=== PATIENT | female | born 1960 | race Caucasian/White ===

== ENCOUNTER 2017-02-09 14:32 | Inpatient (IN) | payer MEDICARE, OTHER ==
[~2017-02-09] VITALS: Ht 167.6 cm; Wt 55.8 kg
[~2017-02-09 14:32] MED LIST: AMLO10TA2 PO; AMLO10TA4 PO; CA C1TAB28 PO; CALC667T PO; CARV12.5 PO; CINA30TA2 PO; CINA60TA PO; FURO-68 PO; FURO80TA72 PO; METO10TA5 PO; METO50TA2 PO; SEVE800T9 PO
[2017-02-09] MEDS ORDERED: IPRATRPIUM/ALBUTEROL 0.5/2.5MG 3 ML NEBU. NEB ONE (14:45)
[2017-02-09] MEDS ORDERED: predniSONE 20 MG TABLET PO ONE (14:45)
--- NOTE | 2017-02-09 15:13 | RAD ---
Indication shortness of breath. PA and lateral views of the chest were obtained and are compared to a study 01/02/2014. There is generalized cardiomegaly. There are extensive bilateral infiltrates similar to the previous exam. While some of this is may be chronic recurrent pulmonary edema should be considered. A component of infection or hemorrhage is not excluded. There are probable small pleural effusions. There is no pneumothorax. IMPRESSION: Stable cardiomegaly. Widespread bilateral pulmonary infiltrates. See above discussion
--- NOTE | 2017-02-09 15:16 | EKG ---
[facility] [address] [place] [address] Test Date: 2017-02-09 Test Time: 14:40:20 Pat Name: MARVIN AUGUSTIN Department: Room: Gender: F Cancer Genetic Counselor: : 1960 Requested By: Ja RAY Order Number: [id number] Reading MD: Measurements Intervals [place] Rate: 87 P: 2 FL: 160 QRS: 68 QRSD: 84 T: 59 QT: 394 QTc: 480 Interpretive Statements SINUS RHYTHM LEFT ATRIAL ABNORMALITY QRS(T) CONTOUR ABNORMALITY CANNOT RULE OUT ANTEROSEPTAL MYOCARDIAL DAMAGE PROLONGED QT RI6.01 Unconfirmed report No previous ECG available for comparison
--- NOTE | 2017-02-09 15:30 | PHYS DOC ---
Past Medical History Past Medical History: Anxiety, COPD, Hypertension, Renal Failure Past Surgical History: Other Additional Past Surgical Histo: LEFT UPPER ARM SHUNT Alcohol Use: None Drug Use: None Adult General Chief Complaint Chief Complaint: SHORTNESS OF BREATH HPI HPI Patient is a 56 year old female with oxygen dependent COPD who presents with dyspnea and increased cough since yesterday. She finished prednisone taper and antibiotics 1 week ago. She has increased amount of sputum, but no color changes. She denies fever or chills, hemoptysis, leg pain, orthopnea, chest pain, palpitations, diaphoresis, abdominal pain, nausea or vomiting, diarrhea, headache, rash. Adheres to [facility]. She went today, but was sent here prior to treatment. Review of Systems Review of Systems Constitutional: Denies fever or chills [] Eyes: Denies change in visual acuity, redness, or eye pain [] HENT: Denies nasal congestion or sore throat [] Respiratory: Has cough and shortness of breath [] Cardiovascular: No additional information not addressed in HPI [] GI: Denies abdominal pain, nausea, vomiting, bloody stools or diarrhea [] : Denies dysuria or hematuria [] Musculoskeletal: Denies back pain or joint pain [] Integument: Denies rash or skin lesions [] Neurologic: Denies headache, focal weakness or sensory changes [] Endocrine: Denies polyuria or polydipsia [] Current Medications Current Medications Current Medications Medications (Trade) Dose Ordered Sig/Leonard Start Time Stop Time Status Last Admin Dose Admin Albuterol/ Ipratropium (Duoneb) 3 ml 1X ONCE 02/09/17 14:45 02/09/17 14:46 DC 02/09/17 14:45 3 ML Prednisone (Prednisone) 60 mg 1X ONCE 02/09/17 14:45 02/09/17 14:46 DC 02/09/17 14:45 60 MG Allergies Allergies Allergies Coded Allergies Type Severity Reaction Last Updated Verified amoxicillin Allergy Intermediate 01/03/14 Yes clavulanic acid Allergy Intermediate 01/03/14 Yes Physical Exam Physical Exam Constitutional: Well developed, well nourished, no acute distress, non-toxic appearance. [] HENT: Normocephalic, atraumatic, bilateral external ears normal, oropharynx moist, no oral exudates, nose normal. [] Eyes: PERRLA, EOMI. [] Neck: Normal range of motion, supple. [] Cardiovascular:Heart rate regular rhythm [] Lungs & Thorax: Mild bilateral wheezing, normal respiratory effort, no crackles [] Abdomen: Bowel sounds normal, soft, no tenderness. [] Skin: Warm, dry, no erythema, no rash. [] Back: Normal ROM. [] Extremities: No tenderness, ROM intact, trace bilateral pretibial edema. [] Neurologic: Alert and oriented X 3, normal motor function, normal sensory function, no focal deficits noted. [] Psychologic: Affect normal, judgement normal, mood normal. [] Current Patient Data Vital Signs Vital Signs Date Time Temp Pulse Resp B/P (MAP) Pulse Ox O2 Delivery O2 Flow Rate FiO2 02/09/17 15:36 91 22 184/96 (125) 91 Nasal Cannula 3.0 02/09/17 14:35 98.5 98.5 Lab Values Laboratory Tests Test 02/09/17 14:35 White Blood Count 9.4 x10^3/uL (4.0-11.0) Red Blood Count 2.77 x10^6/uL (3.50-5.40) L Hemoglobin 9.1 g/dL (12.0-15.5) L Hematocrit 28.1 % (36.0-47.0) L Mean Corpuscular Volume 102 fL (79-100) H Mean Corpuscular Hemoglobin 33 pg (25-35) Mean Corpuscular Hemoglobin Concent 33 g/dL (31-37) Red Cell Distribution Width 18.8 % (11.5-14.5) H Platelet Count 251 x10^3/uL (140-400) Neutrophils (%) (Auto) 81 % (31-73) H Lymphocytes (%) (Auto) 11 % (24-48) L Monocytes (%) (Auto) 6 % (0-9) Eosinophils (%) (Auto) 0 % (0-3) Basophils (%) (Auto) 1 % (0-3) Neutrophils # (Auto) 7.6 x10^3uL (1.8-7.7) Lymphocytes # (Auto) 1.1 x10^3/uL (1.0-4.8) Monocytes # (Auto) 0.6 x10^3/uL (0.0-1.1) Eosinophils # (Auto) 0.0 x10^3/uL (0.0-0.7) Basophils # (Auto) 0.1 x10^3/uL (0.0-0.2) Sodium Level 138 mmol/L (136-145) Potassium Level 6.7 mmol/L (3.5-5.1) *H Chloride Level 95 mmol/L (98-107) L Carbon Dioxide Level 29 mmol/L (21-32) Anion Gap 14 (6-14) Blood Urea Nitrogen 84 mg/dL (7-20) H Creatinine 11.8 mg/dL (0.6-1.0) H Estimated GFR (Cockcroft-Gault) 3.3 Glucose Level 79 mg/dL (70-99) Calcium Level 9.9 mg/dL (8.5-10.1) Laboratory Tests 02/09/17 14:35 Laboratory Tests 02/09/17 14:35 EKG EKG EKG as interpreted by me as normal sinus rhythm, rate 87, no ST-T changes, normal intervals, no ectopy Radiology/Procedures Radiology/Procedures Chest x-ray as interpreted by me with bilateral infiltrates concerning for pulmonary fibrosis versus pulmonary edema versus infectious etiology Course & Med Decision Making Course & Med Decision Making Pertinent Labs and Imaging studies reviewed. (See chart for details) She is feeling much better after neb here, but desaturates to 70s while walking even with 2 L nasal cannula. She does have an oxygen concentrator at home, but states she has not had a formal walking desaturation study by her pizzamaker to know how much oxygen to wear at home. Her symptoms are most concerning for COPD/CHF exacerbations as opposed to pneumonia, so will start on Levaquin for now. Pulmonology, cardiology and nephrology consults placed. Discussed case with Dr. Rdz, who will admit. Discussed case with Dr. Isaac, who will arrange dialysis. Dragon Disclaimer Dragon Disclaimer This electronic medical record was generated, in whole or in part, using a voice recognition dictation system. Departure Departure Impression: Primary Impression: COPD exacerbation Additional Impressions: End stage renal disease on dialysis Hyperkalemia Disposition: ADMITTED INPATIENT Condition: STABLE Referrals: NO PCP (PCP) Problem Qualifiers Ja RAY MD Feb 09, 2017 15:30
[2017-02-09 15:44] LABS: BASO # 0.1 x10^3/uL (0.0-0.2); BASO % 1 % (0-3); EOS % 0 % (0-3); HEMATOCRIT 28.1 % (36.0-47.0); HEMOGLOBIN 9.1 g/dL (12.0-15.5); LYMPH # 1.1 x10^3/uL (1.0-4.8); LYMPH % 11 % (24-48); MEAN CORPUSCULAR HEMOGLOBIN 33 pg (25-35); MEAN CORPUSCULAR HGB CONC 33 g/dL (31-37); MEAN CORPUSCULAR VOLUME 102 fL (79-100); MONO % 6 % (0-9); NEUT % 81 % (31-73); PLATELET COUNT 251 x10^3/uL (140-400); RED BLOOD COUNT 2.77 x10^6/uL (3.50-5.40); RED CELL DISTRIBUTION WIDTH 18.8 % (11.5-14.5); WHITE BLOOD COUNT 9.4 x10^3/uL (4.0-11.0)
[2017-02-09] MEDS ORDERED: levOFLOXacin PER PHARMACY. MC PRN (15:45)
[2017-02-09] MEDS ORDERED: ONDANSETRON PF 4 MG/2 ML VIAL. IV PRN ×2 (16:00→17:30)
[2017-02-09] MEDS ORDERED: ACETAMINOPHEN 325 MG TABLET. PO PRN ×2 (16:00→17:30)
[2017-02-09 16:16] LABS: CALCIUM 9.9 mg/dL (8.5-10.1); CREATININE 11.8 mg/dL (0.6-1.0); GFR 3.3
[2017-02-09] MEDS: IPRATRPIUM/ALBUTEROL 0.5/2.5MG 3 ML NEBU. NEB SCH ×2 (16:16→19:55)
[2017-02-09 16:22] LABS: POTASSIUM 6.7 mmol/L (3.5-5.1)
--- NOTE | 2017-02-09 17:27 | PDOC1 ---
History and Physical Identification/Chief Complaint Chief Complaint sob, cough Problems: History of Present Illness History of Present Illness A 56 Female with hx of ESRD went to HD today, her vital showed Saturations to low 70s, and pt was sent to ER, Pt was requiring 4l oxygen at rest, she usually uses oxygen at night time 2L, Pt c/o cough, with white sputum production, seen by her PCP, completed abx course with steroids. no chest pain or fever or chills. didn't skip her HD. Not a smoker. no sick contacts. compliant with her diet. Past Medical History Cardiovascular: HTN Pulmonary: COPD CENTRAL NERVOUS SYSTEM: Other GI: No pertinent hx Heme/Onc: Cancer Hepatobiliary: No pertinent hx Psych: No pertinent hx Rheumatologic: No pertinent hx Infectious disease: No pertinent hx Renal/: Chronic renal failure Endocrine: No pertinent hx Past Surgical History Past Surgical History: Other Family History Family History: Coronary Artery Disease Social History Smoke: No ALCOHOL: none Drugs: None Current Problem List Problem List Problems Medical Problems: (1) COPD exacerbation Status: Acute (2) End stage renal disease on dialysis Status: Acute (3) Hyperkalemia Status: Acute Current Medications Current Medications Current Medications Medications (Trade) Dose Ordered Sig/Leonard Start Time Stop Time Status Last Admin Dose Admin Acetaminophen (Tylenol) 650 mg PRN Q4HRS PRN 02/09/17 16:00 02/10/17 15:59 Albuterol/ Ipratropium (Duoneb) 3 ml RTQID 02/09/17 16:00 02/10/17 15:59 02/09/17 16:16 3 ML Levofloxacin/ Dextrose 100 ml @ 100 mls/hr Q48H 02/11/17 16:00 Levofloxacin/ Dextrose (Levaquin Per Pharmacy) 1 each PRN DAILY PRN 02/09/17 15:45 Ondansetron HCl (Zofran) 4 mg PRN Q8HRS PRN 02/09/17 16:00 02/10/17 15:59 Prednisone (Prednisone) 60 mg 1X ONCE 02/09/17 14:45 02/09/17 14:46 DC 02/09/17 14:45 60 MG Allergies Allergies Allergies Coded Allergies Type Severity Reaction Last Updated Verified amoxicillin Allergy Intermediate 01/03/14 Yes clavulanic acid Allergy Intermediate 01/03/14 Yes ROS Review of System CONSTITUTIONAL: No fever or chills EYES: No recent changes SKIN: No rash or itching CARDIOVASCULAR: No chest pain, syncope, palpitations, or edema RESPIRATORY: SOB or cough GASTROINTESTINAL: No nausea, vomiting or abdominal pain NEUROLOGICAL: No headaches or weakness ENDOCRINE: No cold or heat intolerance GENITOURINARY: No urgency or frequency of urination MUSCULOSKELETAL: No back pain or joint pain LYMPHATICS: No enlarged lymph nodes PSYCHIATRIC: No anxiety or depression Physical Exam Physical Exam GEN.: No apparent distress. Alert and oriented. HEENT: Head is normocephalic, atraumatic NECK: Supple. no JVD LUNGS: anterior clear, posterior: crackles, HEART: RRR, S1, S2 present. Peripheral pulses intact, systolic murmur present. ABDOMEN: Soft, nontender. Positive bowel sounds. EXTREMITIES: Without any cyanosis. +2 edema NEUROLOGIC: Normal speech, normal tone PSYCHIATRIC: Normal affect, normal mood. SKIN: No ulcerations Vitals Vitals Vital Signs Date Time Temp Pulse Resp B/P (MAP) Pulse Ox O2 Delivery O2 Flow Rate FiO2 02/09/17 16:16 Nasal Cannula 4.0 02/09/17 16:00 90 18 169/95 (119) 92 02/09/17 14:35 98.5 98.5 Labs Labs Laboratory Tests Test 02/09/17 14:35 White Blood Count 9.4 x10^3/uL (4.0-11.0) Red Blood Count 2.77 x10^6/uL (3.50-5.40) Hemoglobin 9.1 g/dL (12.0-15.5) Hematocrit 28.1 % (36.0-47.0) Mean Corpuscular Volume 102 fL (79-100) Mean Corpuscular Hemoglobin 33 pg (25-35) Mean Corpuscular Hemoglobin Concent 33 g/dL (31-37) Red Cell Distribution Width 18.8 % (11.5-14.5) Platelet Count 251 x10^3/uL (140-400) Neutrophils (%) (Auto) 81 % (31-73) Lymphocytes (%) (Auto) 11 % (24-48) Monocytes (%) (Auto) 6 % (0-9) Eosinophils (%) (Auto) 0 % (0-3) Basophils (%) (Auto) 1 % (0-3) Neutrophils # (Auto) 7.6 x10^3uL (1.8-7.7) Lymphocytes # (Auto) 1.1 x10^3/uL (1.0-4.8) Monocytes # (Auto) 0.6 x10^3/uL (0.0-1.1) Eosinophils # (Auto) 0.0 x10^3/uL (0.0-0.7) Basophils # (Auto) 0.1 x10^3/uL (0.0-0.2) Sodium Level 138 mmol/L (136-145) Potassium Level 6.7 mmol/L (3.5-5.1) Chloride Level 95 mmol/L (98-107) Carbon Dioxide Level 29 mmol/L (21-32) Anion Gap 14 (6-14) Blood Urea Nitrogen 84 mg/dL (7-20) Creatinine 11.8 mg/dL (0.6-1.0) Estimated GFR (Cockcroft-Gault) 3.3 Glucose Level 79 mg/dL (70-99) Calcium Level 9.9 mg/dL (8.5-10.1) MV-Bba-O-Type Natriuretic Peptide > 38193 pg/mL (0-124) Laboratory Tests Test 02/09/17 14:35 White Blood Count 9.4 x10^3/uL (4.0-11.0) Red Blood Count 2.77 x10^6/uL (3.50-5.40) Hemoglobin 9.1 g/dL (12.0-15.5) Hematocrit 28.1 % (36.0-47.0) Mean Corpuscular Volume 102 fL (79-100) Mean Corpuscular Hemoglobin 33 pg (25-35) Mean Corpuscular Hemoglobin Concent 33 g/dL (31-37) Red Cell Distribution Width 18.8 % (11.5-14.5) Platelet Count 251 x10^3/uL (140-400) Neutrophils (%) (Auto) 81 % (31-73) Lymphocytes (%) (Auto) 11 % (24-48) Monocytes (%) (Auto) 6 % (0-9) Eosinophils (%) (Auto) 0 % (0-3) Basophils (%) (Auto) 1 % (0-3) Neutrophils # (Auto) 7.6 x10^3uL (1.8-7.7) Lymphocytes # (Auto) 1.1 x10^3/uL (1.0-4.8) Monocytes # (Auto) 0.6 x10^3/uL (0.0-1.1) Eosinophils # (Auto) 0.0 x10^3/uL (0.0-0.7) Basophils # (Auto) 0.1 x10^3/uL (0.0-0.2) Sodium Level 138 mmol/L (136-145) Potassium Level 6.7 mmol/L (3.5-5.1) Chloride Level 95 mmol/L (98-107) Carbon Dioxide Level 29 mmol/L (21-32) Anion Gap 14 (6-14) Blood Urea Nitrogen 84 mg/dL (7-20) Creatinine 11.8 mg/dL (0.6-1.0) Estimated GFR (Cockcroft-Gault) 3.3 Glucose Level 79 mg/dL (70-99) Calcium Level 9.9 mg/dL (8.5-10.1) WZ-Akb-X-Type Natriuretic Peptide > 55383 pg/mL (0-124) VTE Prophylaxis Ordered VTE Prophylaxis Devices: No VTE Pharmacological Prophylaxi: Contraindicated Assessment/Plan Assessment/Plan Acute on chronic hypoxic respiratory failure multifactorial Hyperkalemia ESRD on HD HTN ? COPD Elevated BNP Plan PRN DuoNeb supplemental oxygen at 2-4L Levaquin, pt completed abx at home with steroids, (unknown name of the abx) PO Kayexalate now. HD today, nephrology consult PRN hydralazine for HTN if sbp > 160. Echocardiogram CT chest for persistent sob, pulmonology consult Labs and images reviewed. CXR congestion vs chronic changes. old records reviewed. SULEMA VIVAS MD Feb 09, 2017 17:27
[2017-02-09] MEDS ORDERED: HYDROcodone/APAP 5/325MG 1 TAB TABLET PO PRN ×2 (17:30→18:00)
[2017-02-09] MEDS ORDERED: ALBUTEROL SULFATE 2.5 MG/3 ML NEBU. NEB PRN (17:30)
[2017-02-09] MEDS ORDERED: SODIUM POLYSTYRENE SULFONATE 15 GM/60 ML ORAL.SUSP. PO ONE (17:30)
[2017-02-09] MEDS ORDERED: hydrALAZINE 20 MG/ML VIAL. IVP PRN (17:30)
[2017-02-09 17:33] VITALS: BP 142/94
[2017-02-09] MEDS ORDERED: SEVE800T9 PO (17:34)
[2017-02-09] MEDS ORDERED: FOLI0.8T3 PO (17:34)
[2017-02-09] MEDS ORDERED: HYDR-2868 PO (17:34)
[2017-02-09] MEDS ORDERED: HYDR-971 PO (17:34)
[2017-02-09] MEDS ORDERED: BECL8.7A7 IH (17:34)
[2017-02-09] MEDS ORDERED: CINA30TA2 PO (17:34)
[2017-02-09] MEDS ORDERED: CALC667T PO (17:34)
[2017-02-09] MEDS ORDERED: PANT40TA5 PO (17:34)
[2017-02-09] MEDS ORDERED: LEXAPRO20 MG PO (17:34)
[2017-02-09] MEDS ORDERED: SODI650T PO (17:34)
[2017-02-09] MEDS ORDERED: CARV6.25 PO (17:34)
[2017-02-09] MEDS ORDERED: ALBUMIN HUMAN 25% 200 ML IV PRN (18:00)
[2017-02-09] MEDS ORDERED: IV NORMAL SALINE 1000ML BAG 1,000 ML IV PRN (18:00)
[2017-02-09] MEDS ORDERED: DIALYSIS PATIENT. MC PRN (18:00)
[2017-02-09] MEDS ORDERED: diphenhydrAMINE 50 MG/ML VIAL IV PRN ×2 (18:00)
[2017-02-09] MEDS: SEVELAMER CARBONATE 800 MG TABLET. PO SCH (18:03)
[2017-02-09] MEDS: CALCIUM ACETATE 667 MG CAPSULE PO SCH (18:03)
[2017-02-09] MEDS: CARVEDILOL 6.25 MG TABLET. PO SCH (18:03)
[2017-02-09] MEDS: BUDESONIDE 0.5 MG/2 ML NEBU. NEB SCH (19:55)
[2017-02-09] MEDS: hydrALAZINE 25 MG TABLET PO SCH (22:42)
[2017-02-09] MEDS: SODIUM BICARBONATE 650 MG TABLET. PO SCH (22:42)
[2017-02-09 23:00] VITALS: BP 145/83
[2017-02-10 03:00] VITALS: BP 137/86
--- NOTE | 2017-02-10 03:07 | ACF ---
Admission Forms Criteria COPD Clinical Indications for Admission to Inpatient Care (Place 'X' for any and all applicable criteria): Admission is indicated for ANY ONE of the following (1)(2)(3): [X]I. Acute exacerbation by high-risk comorbidity (e.g., pneumonia, dysrhythmia, heart failure, pleural effusion, pneumothorax) or severe underlying COPD (e.g., steroid dependent) [ ]II. Inpatient admission required rather than observation care (see Chronic Obstructive Pulmonary Disease: Observation Care) because of ANY ONE of the following: [ ]a) New or pre-existing signs or symptoms of COPD (eg, dyspnea or Tachypnea at rest or with minimal activity) that persist despite outpatient and observation care treatment [ ]b) New-onset hypoxemia (room air SaO2 less than 90%, PO2 less than 60 mm Hg (8.0 kPa)) that persists despite outpatient and observation care treatment [ ]c) Worsening of pre-existing hypoxemia (eg, new or increased requirement for supplemental oxygen to maintain oxygenation at baseline level) that persists despite outpatient and observation care treatment, with oxygen treatment needs performable only in acute inpatient setting [ ]d) Hypercarbia (PCO2 greater than 40 mm Hg (5.3 kPa))-induced respiratory acidosis (pH less than 7.35) that persists despite outpatient and observation care treatment [ ]e) Supplemental oxygen or respiratory treatments for over 24 hours that are performable only in acute inpatient setting [ ]f) Chest tube placement with active evacuation (e.g., suction, drainage) (5) [ ]g) Other condition, treatment or monitoring requiring inpatient admission [ ]III. Planned invasive surgical or diagnostic procedures requiring acute- care hospitalization [ ]IV. Acute respiratory failure (e.g., uncompensated hypercarbia, severe hypoxemia) [ ]V. Severe comorbid condition (e.g., severe steroid myopathy, acute vertebral fracture) that has acutely worsened pulmonary function [ ]. Confusion state, lethargy, obtundation, stupor or coma Extended stay beyond goal length of stay may be needed for (31)(32): [ ]a ) Respiratory Failure. [ ]b) Severe or persisting hypoxemia or hypercarbia [ ]c) Severe or persistent dyspnea [ ]d) Comorbidities (e.g. chronic heart failure, atrial fibrillation with rapid response, pneumonia) [ ]e) Malnutrition The original [facility] content created by [facility] has been revised. The portions of the content which have been revised are identified through the use of italic text or in bold, and [facility] has neither reviewed nor approved the modified material. All other unmodified content is copyright [facility]. Please see references footnoted in the original [facility] edition 2016 Admission Criteria Met?: Yes SHYANN ANN Feb 10, 2017 03:07
[2017-02-10 03:59] LABS: BASO % 0 % (0-3); EOS % 0 % (0-3); HEMOGLOBIN 8.4 g/dL (12.0-15.5); LYMPH # 0.4 x10^3/uL (1.0-4.8); LYMPH % 6 % (24-48); MEAN CORPUSCULAR HEMOGLOBIN 34 pg (25-35); MEAN CORPUSCULAR HGB CONC 35 g/dL (31-37); MEAN CORPUSCULAR VOLUME 98 fL (79-100); MONO % 7 % (0-9); NEUT % 87 % (31-73); PLATELET COUNT 227 x10^3/uL (140-400); RED BLOOD COUNT 2.46 x10^6/uL (3.50-5.40); RED CELL DISTRIBUTION WIDTH 17.8 % (11.5-14.5); WHITE BLOOD COUNT 6.9 x10^3/uL (4.0-11.0)
[2017-02-10 04:11] LABS: CREATININE 5.4 mg/dL (0.6-1.0); GFR 8.2; POTASSIUM 4.3 mmol/L (3.5-5.1)
[2017-02-10 07:00] VITALS: BP 154/86
[2017-02-10] MEDS: IPRATRPIUM/ALBUTEROL 0.5/2.5MG 3 ML NEBU. NEB SCH ×3 (07:22→15:14)
[2017-02-10] MEDS: BUDESONIDE 0.5 MG/2 ML NEBU. NEB SCH (07:22)
[2017-02-10] MEDS ORDERED: PANTOPRAZOLE 40 MG TABLET.DR. PO SCH (07:30)
[2017-02-10] MEDS: CALCIUM ACETATE 667 MG CAPSULE PO SCH ×2 (08:00→11:48)
[2017-02-10] MEDS: SEVELAMER CARBONATE 800 MG TABLET. PO SCH ×2 (08:00→11:48)
[2017-02-10] MEDS: CARVEDILOL 6.25 MG TABLET. PO SCH (08:18)
[2017-02-10] MEDS: hydrALAZINE 25 MG TABLET PO SCH (08:18)
[2017-02-10] MEDS ORDERED: ESCITALOPRAM 10 MG TABLET. PO SCH (09:00)
[2017-02-10] MEDS ORDERED: FOLIC/VIT B COMP W-C (RENAL) TABLET. PO SCH (09:00)
[2017-02-10] MEDS: SODIUM BICARBONATE 650 MG TABLET. PO SCH ×2 (09:00→11:48)
[2017-02-10] MEDS ORDERED: CINACALCET HCL 30 MG TABLET PO SCH (09:00)
[2017-02-10] MEDS ORDERED: amLODIPine BESYLATE 10 MG TABLET PO SCH (09:00)
--- NOTE | 2017-02-10 10:41 | CARD ---
APPROVED REPORT EXAM: Two-dimensional and M-mode echocardiogram with Doppler and color Doppler. Other Information Quality : GoodHR: 87bpm Rhythm : NSR INDICATION Congestive Heart Failure Short of air 2D DIMENSIONS RVDd3.2 (2.9-3.5cm)Left Atrium(2D)4.6 (1.6-4.0cm) IVSd1.1 (0.7-1.1cm)Aortic Root(2D)2.7 (2.0-3.7cm) LVDd5.7 (3.9-5.9cm)LVOT Diameter2.0 (1.8-2.4cm) PWd1.1 (0.7-1.1cm)LVDs3.5 (2.5-4.0cm) FS (%) 38.8 %SV109.6 ml LVEF(%)68.5 (>50%) Aortic Valve AoV Peak [place].190.2cm/sAoV VTI33.3cm AO Peak GR.14.5mmHgLVOT Peak [place].133.8cm/s LVOT VTI 24.72cmAO Mean GR.8mmHg STEPHEN (VMAX)2.96my6UGY (VTI)2.30cm2 Mitral Valve MV E Dpyckssp550.9cm/sMV E Peak Gr.193mmHg MV DECEL [id number] A Dwpetpip288.0cm/s MV E Mean Gr.7mmHgMV NHQ65ii E/A Ratio1.1MV A Dfqekdts67ht MVA (PHT)3.77cm2 TDI E/Lateral E'13.7E/Medial E'15.6 Pulmonary Valve PV Peak Ezbbwjyk453.7cm/sPV Peak Grad.13mmHg RVOT VTI19.2cm Tricuspid Valve TR P. Ffubysby671ds/sRAP [id number] TR Peak Gr.51keHySBFB97jnCf LEFT VENTRICLE The left ventricle is normal size. There is mild concentric left ventricular hypertrophy. The left ve ntricular systolic function is normal. The Ejection Fraction is 55-60%. There is normal LV segmental wall motion. The left ventricular diastolic function and filling is normal for age. There is no ventr icular septal defect visualized. RIGHT VENTRICLE The right ventricle is normal size. The right ventricular systolic function is normal. ATRIA The left atrium size is normal. The right atrium size is normal. The interatrial septum is intact wit h no evidence for an atrial septal defect or patent foramen ovale as noted on 2-D or Doppler imaging. AORTIC VALVE The aortic valve is mildly thickened. Doppler and Color Flow revealed mild aortic regurgitation. Ther e is no significant aortic valvular stenosis. MITRAL VALVE The mitral valve leaflets are mildly thickened. There is no evidence of mitral valve prolapse. There is no mitral valve stenosis. Doppler and Color Flow revealed moderate mitral regurgitation. TRICUSPID VALVE The tricuspid valve is normal in structure and function. Doppler and Color Flow revealed moderate tri cuspid regurgitation. The pulmonary artery systolic pressure is estimated at 40 mmHg. There is modera te pulmonary hypertension. There is no tricuspid valve stenosis. PULMONIC VALVE The pulmonic valve is not well visualized. Doppler and Color Flow revealed mild pulmonic valvular reg urgitation. There is no pulmonic valvular stenosis. GREAT VESSELS The aortic root is normal in size. The ascending aorta is normal in size. The pulmonary artery is nor mal. The IVC is normal in size and collapses >50% with inspiration. PERICARDIAL EFFUSION There is moderate pleural effusion. There is no evidence of significant pericardial effusion. Critical Notification Critical Value: No <Conclusion> The left ventricular systolic function is normal. The Ejection Fraction is 55-60%. There is normal LV segmental wall motion. Mild aortic regurgitation. Moderate mitral regurgitation. Moderate tricuspid regurgitation. The pulmonary artery systolic pressure is estimated at 40 mmHg. There is moderate pulmonary hypertension. There is no evidence of significant pericardial effusion.
--- NOTE | 2017-02-10 10:48 | PDOC2 ---
CONSULT Date of Consult Date of Consult DATE: 02/10/17 TIME: 10:47 Reason for Consult Reason for Consult: ESRD and ^ K Referring Physician Referring Physician: Dr Rdz Identification/Chief Complaint Chief Complaint SOB/ COPD Exac Problems: Source Source: Chart review, Patient History of Present Illness Reason for Visit: As dictated Past Medical History Cardiovascular: HTN Pulmonary: COPD CENTRAL NERVOUS SYSTEM: Other GI: No pertinent hx Heme/Onc: Cancer Hepatobiliary: No pertinent hx Psych: No pertinent hx Musculoskeletal: Osteoarthritis Rheumatologic: No pertinent hx Infectious disease: No pertinent hx Renal/: Chronic renal failure Endocrine: No pertinent hx Past Surgical History Past Surgical History: Other Family History Family History: Coronary Artery Disease Social History No ALCOHOL: none Drugs: None Lives: with Family Domestic Violence: Neg Current Problem List Problem List Problems Medical Problems: (1) COPD exacerbation Status: Acute (2) End stage renal disease on dialysis Status: Acute (3) Hyperkalemia Status: Acute Current Medications Current Medications Current Medications Albuterol/ Ipratropium (Duoneb) 3 ml 1X ONCE NEB Last administered on 14:45; Start 02/09/17 at 14:45; Stop 02/09/17 at 14:46; Status DC Prednisone (Prednisone) 60 mg 1X ONCE PO Last administered on 02/09/17 14:45 ; Start 02/09/17 at 14:45; Stop 02/09/17 at 14:46; Status DC Levofloxacin/ Dextrose (Levaquin Per Pharmacy) 1 each PRN DAILY PRN MC SEE COMMENTS; Start 02/09/17 at 15:45 Levofloxacin/ Dextrose 150 ml @ 100 mls/hr 1X ONCE IV Last administered on t 15:45; Start 02/09/17 at 15:45; Stop 02/09/17 at 17:14; Status DC Ondansetron HCl (Zofran) 4 mg PRN Q8HRS PRN IV NAUSEA/VOMITING; Start 02/09/17 at 16:00; Stop 02/09/17 at 17:52; Status DC Acetaminophen (Tylenol) 650 mg PRN Q4HRS PRN PO FEVER; Start 02/09/17 at 16:00 ; Stop 02/09/17 at 17:52; Status DC Albuterol/ Ipratropium (Duoneb) 3 ml RTQID NEB Last administered on 02/10/17 07:22; Start 02/09/17 at 16:00; Stop 02/10/17 at 15:59 Levofloxacin/ Dextrose 100 ml @ 100 mls/hr Q48H IV ; Start 02/11/17 at 16:00 Sodium Polystyrene Sulfonate (Kayexalate) 30 gm 1X ONCE PO Last administered on 02/09/17 17:58; Start 02/09/17 at 17:30; Stop 02/09/17 at 17:44; Status DC Guaifenesin (Robitussin) 200 mg PRN Q4HRS PRN PO COUGH; Start 02/09/17 at 17:30 Acetaminophen (Tylenol) 325 mg PRN Q6HRS PRN PO MILD PAIN / TEMP; Start at 17:30 Acetaminophen/ Hydrocodone Bitart (Lortab 5/325) 1 tab PRN Q6HRS PRN PO MODERATE TO SEVERE PAIN; Start 02/09/17 at 17:30 Hydralazine HCl (Apresoline) 10 mg PRN Q4HRS PRN IVP ELEVATED BP, SEE COMMENTS ; Start 02/09/17 at 17:30 Ondansetron HCl (Zofran) 4 mg PRN Q8HRS PRN IV NAUSEA/VOMITING; Start 02/09/17 at 17:30 Albuterol Sulfate (Ventolin Neb Soln) 2.5 mg PRN Q4HRS PRN NEB SHORTNESS OF BREATH; Start 02/09/17 at 17:30 Amlodipine Besylate (Norvasc) 10 mg DAILY PO Last administered on 02/10/17 08: 17; Start 02/10/17 at 09:00 Carvedilol (Coreg) 6.25 mg BIDWMEALS PO Last administered on 02/10/17 08:18; Start 02/09/17 at 18:00 Cinacalcet (Sensipar) 90 mg DAILY PO Last administered on 02/10/17 08:17; Start 02/10/17 at 09:00 Vitamin B Complex/ Vitamin C (Kasandra-Marissa) 1 tab DAILY PO Last administered on 08:17; Start 02/10/17 at 09:00 Hydralazine HCl (Apresoline) 25 mg TID PO Last administered on 02/10/17 08:18 ; Start 02/09/17 at 21:00 Acetaminophen/ Hydrocodone Bitart (Lortab 5/325) 1 tab PRN Q4HRS PRN PO PAIN Last administered on 02/10/17 02:18; Start 02/09/17 at 18:00 Pantoprazole Sodium (Protonix) 40 mg DAILYAC PO Last administered on 02/10/17 08:18; Start 02/10/17 at 07:30 Sevelamer Carbonate (Renvela) 800 mg TIDWMEALS PO Last administered on 18:03; Start 02/09/17 at 18:00 Sodium Bicarbonate (Sodium Bicarbonate) 1,300 mg BID PO Last administered on 22:42; Start 02/09/17 at 21:00 Budesonide (Pulmicort) 0.5 mg RTBID NEB Last administered on 02/10/17 07:22; Start 02/09/17 at 20:00 Calcium Acetate (Phoslo) 1,334 mg TIDWMEALS PO Last administered on 02/09/17 18:03; Start 02/09/17 at 18:00 Escitalopram Oxalate (Lexapro) 20 mg DAILY PO Last administered on 02/10/17 08 :18; Start 02/10/17 at 09:00 Sodium Chloride 1,000 ml @ 1,000 mls/hr Q1H PRN IV hypotension; Start 02/09/17 at 18:00; Stop 02/09/17 at 23:59; Status DC Albumin Human 200 ml @ 200 mls/hr 1X PRN PRN IV Hypotension; Start 02/09/17 at 18:00; Stop 02/09/17 at 23:59; Status DC Diphenhydramine HCl (Benadryl) 25 mg 1X PRN PRN IV ITCHING; Start 02/09/17 at 18:00; Stop 02/09/17 at 23:59; Status DC Diphenhydramine HCl (Benadryl) 25 mg 1X PRN PRN IV ITCHING; Start 02/09/17 at 18:00; Stop 02/09/17 at 23:59; Status DC Info (PHARMACY MONITORING -- do not chart) 1 each PRN DAILY PRN MC SEE COMMENTS ; Start 02/09/17 at 18:00 Active Scripts Active Reported Qvar 40MCG Inhaler (Beclomethasone Dipropionate) 8.7 Gm Aer.w.adap 2 Puff IH BID Sodium Bicarbonate 650 Mg Tablet 2 Tab PO BID Sensipar (Cinacalcet Hcl) 30 Mg Tablet 3 Tab PO DAILY Renvela (Sevelamer Carbonate) 800 Mg Tablet 800 Mg PO TIDWMEALS Calcium Acetate 667 Mg Tablet 1,334 Mg PO TIDWMEALS Pantoprazole Sodium 40 Mg Tablet.dr 1 Tab PO DAILY [place] 5-325 Tablet (Acetaminophen/Hydrocodone Bitart) 1 Each Tablet 1 Tab PO PRN Q4HRS PRN Nephro-Marissa Tablet (Folic Acid/Vitamin B Comp W-C) 0.8 Mg Tablet 1 Tab PO DAILY Lexapro (Escitalopram Oxalate) 20 Mg Tablet 1 Tab PO DAILY Hydralazine Hcl 25 Mg Tablet 1 Tab PO TID Coreg (Carvedilol) 6.25 Mg Tablet 1 Tab PO BID Norvasc (Amlodipine Besylate) 10 Mg Tablet 1 Tab PO DAILY Allergies Allergies: Coded Allergies: amoxicillin (Verified Allergy, Intermediate, 01/03/14) clavulanic acid (Verified Allergy, Intermediate, 01/03/14) ROS Review of System GEN: no Fevers no Chills EYES: no new Visual Complaints ENT: no EN Drainage no Hearing deficiets CVS: min Orthopnea no CP RESP: + SOB - now resolved min MEYER OA - now resolved GI: no Nausea no Vomiting : no Dysuria no Urgency HEME: no easy bruising no Palp Ly Nodes NEURO no Focal Weakness no Sz PSYCH: no Suicidal Ideation no Depression SKIN: no Rashes ENDO: no Polyuria or Polydipsia no Hot/Cold Intolerance MU SK: no Arthraigia no Myalgia Physical Exam Physical Exam General Appearance: Awake Alert Oriented x 3 In no Distress Eyes: VIsion Unchanged Conjunctiva Normal EN: No EN Drainage Mucous Memb. moist Neck: no JVD min JVP Supple no Thyromegaly CVS: S1 S2 + Murmur No Gallop No Rub no Edema Resp: no Rales no Rhonchi no Acc. Muscle use GI: BAS +ve NO Bruit Non Tender Non Distended : no CVA tenderness; no Suprapubic Tenderness SKIN: no Rashes Breast Exam deferred Mu.Sk: Adequate ROM no Muscle Atrophy Heme: Unable to palpate Obvious LAD no Splenomegaly NEURO: Good Strength and Tone Cranial Nerves II - XII grossly intact Psych: no Depressed no Active hallucination Vital Signs Vital Signs Date Time Temp Pulse Resp B/P (MAP) Pulse Ox O2 Delivery O2 Flow Rate FiO2 02/10/17 08:18 89 154/86 02/10/17 07:26 94 Nasal Cannula 4.0 02/10/17 07:00 98.2 16 98.2 Assessment & Plan ESRD: Current FLuid and E-lyte status does not necessitate emergent need for Dialysis. Will re-evaluate for Dialysis in am and continue on MWF schedule. ^^K yest - better after HD done yest pulm edema on CXR - ECHO Noted with Mod MR - Clincially much better. re- Educated pt re ID Wt gain and Po fluids. MR may need further eval. cards consult was D/c ed but will need OP F/up for same VHDz - ? need for AMARA - can be done as OP Anemia: Epogen as prdered. Transfuse with next HD as needed. HTN: Current BP meds reviewed. See orders for changes. Bone & Mineral: Follow PHOS and PTh as OP Discussed Plan of Care and prognosis etc. at length with family. Labs Labs Laboratory Tests Test 02/09/17 14:35 02/10/17 03:16 White Blood Count 9.4 x10^3/uL (4.0-11.0) 6.9 x10^3/uL (4.0-11.0) Red Blood Count 2.77 x10^6/uL (3.50-5.40) 2.46 x10^6/uL (3.50-5.40) Hemoglobin 9.1 g/dL (12.0-15.5) 8.4 g/dL (12.0-15.5) Hematocrit 28.1 % (36.0-47.0) 24.0 % (36.0-47.0) Mean Corpuscular Volume 102 fL (79-100) 98 fL (79-100) Mean Corpuscular Hemoglobin 33 pg (25-35) 34 pg (25-35) Mean Corpuscular Hemoglobin Concent 33 g/dL (31-37) 35 g/dL (31-37) Red Cell Distribution Width 18.8 % (11.5-14.5) 17.8 % (11.5-14.5) Platelet Count 251 x10^3/uL (140-400) 227 x10^3/uL (140-400) Neutrophils (%) (Auto) 81 % (31-73) 87 % (31-73) Lymphocytes (%) (Auto) 11 % (24-48) 6 % (24-48) Monocytes (%) (Auto) 6 % (0-9) 7 % (0-9) Eosinophils (%) (Auto) 0 % (0-3) 0 % (0-3) Basophils (%) (Auto) 1 % (0-3) 0 % (0-3) Neutrophils # (Auto) 7.6 x10^3uL (1.8-7.7) 6.0 x10^3uL (1.8-7.7) Lymphocytes # (Auto) 1.1 x10^3/uL (1.0-4.8) 0.4 x10^3/uL (1.0-4.8) Monocytes # (Auto) 0.6 x10^3/uL (0.0-1.1) 0.4 x10^3/uL (0.0-1.1) Eosinophils # (Auto) 0.0 x10^3/uL (0.0-0.7) 0.0 x10^3/uL (0.0-0.7) Basophils # (Auto) 0.1 x10^3/uL (0.0-0.2) 0.0 x10^3/uL (0.0-0.2) Sodium Level 138 mmol/L (136-145) 141 mmol/L (136-145) Potassium Level 6.7 mmol/L (3.5-5.1) 4.3 mmol/L (3.5-5.1) Chloride Level 95 mmol/L (98-107) 99 mmol/L (98-107) Carbon Dioxide Level 29 mmol/L (21-32) 34 mmol/L (21-32) Anion Gap 14 (6-14) 8 (6-14) Blood Urea Nitrogen 84 mg/dL (7-20) 29 mg/dL (7-20) Creatinine 11.8 mg/dL (0.6-1.0) 5.4 mg/dL (0.6-1.0) Estimated GFR (Cockcroft-Gault) 3.3 8.2 Glucose Level 79 mg/dL (70-99) 158 mg/dL (70-99) Calcium Level 9.9 mg/dL (8.5-10.1) 10.0 mg/dL (8.5-10.1) VK-Oag-I-Type Natriuretic Peptide > 04317 pg/mL (0-124) Laboratory Tests Test 02/09/17 14:35 02/10/17 03:16 White Blood Count 9.4 x10^3/uL (4.0-11.0) 6.9 x10^3/uL (4.0-11.0) Red Blood Count 2.77 x10^6/uL (3.50-5.40) 2.46 x10^6/uL (3.50-5.40) Hemoglobin 9.1 g/dL (12.0-15.5) 8.4 g/dL (12.0-15.5) Hematocrit 28.1 % (36.0-47.0) 24.0 % (36.0-47.0) Mean Corpuscular Volume 102 fL (79-100) 98 fL (79-100) Mean Corpuscular Hemoglobin 33 pg (25-35) 34 pg (25-35) Mean Corpuscular Hemoglobin Concent 33 g/dL (31-37) 35 g/dL (31-37) Red Cell Distribution Width 18.8 % (11.5-14.5) 17.8 % (11.5-14.5) Platelet Count 251 x10^3/uL (140-400) 227 x10^3/uL (140-400) Neutrophils (%) (Auto) 81 % (31-73) 87 % (31-73) Lymphocytes (%) (Auto) 11 % (24-48) 6 % (24-48) Monocytes (%) (Auto) 6 % (0-9) 7 % (0-9) Eosinophils (%) (Auto) 0 % (0-3) 0 % (0-3) Basophils (%) (Auto) 1 % (0-3) 0 % (0-3) Neutrophils # (Auto) 7.6 x10^3uL (1.8-7.7) 6.0 x10^3uL (1.8-7.7) Lymphocytes # (Auto) 1.1 x10^3/uL (1.0-4.8) 0.4 x10^3/uL (1.0-4.8) Monocytes # (Auto) 0.6 x10^3/uL (0.0-1.1) 0.4 x10^3/uL (0.0-1.1) Eosinophils # (Auto) 0.0 x10^3/uL (0.0-0.7) 0.0 x10^3/uL (0.0-0.7) Basophils # (Auto) 0.1 x10^3/uL (0.0-0.2) 0.0 x10^3/uL (0.0-0.2) Sodium Level 138 mmol/L (136-145) 141 mmol/L (136-145) Potassium Level 6.7 mmol/L (3.5-5.1) 4.3 mmol/L (3.5-5.1) Chloride Level 95 mmol/L (98-107) 99 mmol/L (98-107) Carbon Dioxide Level 29 mmol/L (21-32) 34 mmol/L (21-32) Anion Gap 14 (6-14) 8 (6-14) Blood Urea Nitrogen 84 mg/dL (7-20) 29 mg/dL (7-20) Creatinine 11.8 mg/dL (0.6-1.0) 5.4 mg/dL (0.6-1.0) Estimated GFR (Cockcroft-Gault) 3.3 8.2 Glucose Level 79 mg/dL (70-99) 158 mg/dL (70-99) Calcium Level 9.9 mg/dL (8.5-10.1) 10.0 mg/dL (8.5-10.1) OB-Ldp-N-Type Natriuretic Peptide > 12086 pg/mL (0-124) NNAMDI REARDON MD Feb 10, 2017 10:48
[2017-02-10 10:52] VITALS: BP 143/89
[2017-02-10 14:52] VITALS: BP 151/86
--- NOTE | 2017-02-10 16:10 | PDOC ---
PULMONARY PROGRESS NOTES Vitals Vital Signs Date Time Temp Pulse Resp B/P (MAP) Pulse Ox O2 Delivery O2 Flow Rate FiO2 02/10/17 15:14 Nasal Cannula 4.0 02/10/17 14:52 98.2 96 16 151/86 (107) 90 98.2 Labs Laboratory Tests Test 02/09/17 14:35 02/10/17 03:16 White Blood Count 9.4 x10^3/uL (4.0-11.0) 6.9 x10^3/uL (4.0-11.0) Red Blood Count 2.77 x10^6/uL (3.50-5.40) 2.46 x10^6/uL (3.50-5.40) Hemoglobin 9.1 g/dL (12.0-15.5) 8.4 g/dL (12.0-15.5) Hematocrit 28.1 % (36.0-47.0) 24.0 % (36.0-47.0) Mean Corpuscular Volume 102 fL (79-100) 98 fL (79-100) Mean Corpuscular Hemoglobin 33 pg (25-35) 34 pg (25-35) Mean Corpuscular Hemoglobin Concent 33 g/dL (31-37) 35 g/dL (31-37) Red Cell Distribution Width 18.8 % (11.5-14.5) 17.8 % (11.5-14.5) Platelet Count 251 x10^3/uL (140-400) 227 x10^3/uL (140-400) Neutrophils (%) (Auto) 81 % (31-73) 87 % (31-73) Lymphocytes (%) (Auto) 11 % (24-48) 6 % (24-48) Monocytes (%) (Auto) 6 % (0-9) 7 % (0-9) Eosinophils (%) (Auto) 0 % (0-3) 0 % (0-3) Basophils (%) (Auto) 1 % (0-3) 0 % (0-3) Neutrophils # (Auto) 7.6 x10^3uL (1.8-7.7) 6.0 x10^3uL (1.8-7.7) Lymphocytes # (Auto) 1.1 x10^3/uL (1.0-4.8) 0.4 x10^3/uL (1.0-4.8) Monocytes # (Auto) 0.6 x10^3/uL (0.0-1.1) 0.4 x10^3/uL (0.0-1.1) Eosinophils # (Auto) 0.0 x10^3/uL (0.0-0.7) 0.0 x10^3/uL (0.0-0.7) Basophils # (Auto) 0.1 x10^3/uL (0.0-0.2) 0.0 x10^3/uL (0.0-0.2) Sodium Level 138 mmol/L (136-145) 141 mmol/L (136-145) Potassium Level 6.7 mmol/L (3.5-5.1) 4.3 mmol/L (3.5-5.1) Chloride Level 95 mmol/L (98-107) 99 mmol/L (98-107) Carbon Dioxide Level 29 mmol/L (21-32) 34 mmol/L (21-32) Anion Gap 14 (6-14) 8 (6-14) Blood Urea Nitrogen 84 mg/dL (7-20) 29 mg/dL (7-20) Creatinine 11.8 mg/dL (0.6-1.0) 5.4 mg/dL (0.6-1.0) Estimated GFR (Cockcroft-Gault) 3.3 8.2 Glucose Level 79 mg/dL (70-99) 158 mg/dL (70-99) Calcium Level 9.9 mg/dL (8.5-10.1) 10.0 mg/dL (8.5-10.1) LS-Jmi-I-Type Natriuretic Peptide > 79616 pg/mL (0-124) Laboratory Tests Test 02/10/17 03:16 White Blood Count 6.9 x10^3/uL (4.0-11.0) Red Blood Count 2.46 x10^6/uL (3.50-5.40) Hemoglobin 8.4 g/dL (12.0-15.5) Hematocrit 24.0 % (36.0-47.0) Mean Corpuscular Volume 98 fL (79-100) Mean Corpuscular Hemoglobin 34 pg (25-35) Mean Corpuscular Hemoglobin Concent 35 g/dL (31-37) Red Cell Distribution Width 17.8 % (11.5-14.5) Platelet Count 227 x10^3/uL (140-400) Neutrophils (%) (Auto) 87 % (31-73) Lymphocytes (%) (Auto) 6 % (24-48) Monocytes (%) (Auto) 7 % (0-9) Eosinophils (%) (Auto) 0 % (0-3) Basophils (%) (Auto) 0 % (0-3) Neutrophils # (Auto) 6.0 x10^3uL (1.8-7.7) Lymphocytes # (Auto) 0.4 x10^3/uL (1.0-4.8) Monocytes # (Auto) 0.4 x10^3/uL (0.0-1.1) Eosinophils # (Auto) 0.0 x10^3/uL (0.0-0.7) Basophils # (Auto) 0.0 x10^3/uL (0.0-0.2) Sodium Level 141 mmol/L (136-145) Potassium Level 4.3 mmol/L (3.5-5.1) Chloride Level 99 mmol/L (98-107) Carbon Dioxide Level 34 mmol/L (21-32) Anion Gap 8 (6-14) Blood Urea Nitrogen 29 mg/dL (7-20) Creatinine 5.4 mg/dL (0.6-1.0) Estimated GFR (Cockcroft-Gault) 8.2 Glucose Level 158 mg/dL (70-99) Calcium Level 10.0 mg/dL (8.5-10.1) Medications Active Scripts Medications Dose Route/Sig Max Daily Dose Days Date Category Qvar 40MCG Inhaler (Beclomethasone Dipropionate) 8.7 Gm Aer.w.adap 2 Puff IH BID 02/09/17 Reported Sodium Bicarbonate 650 Mg Tablet 2 Tab PO BID 02/09/17 Reported Sensipar (Cinacalcet Hcl) 30 Mg Tablet 3 Tab PO DAILY 02/09/17 Reported Renvela (Sevelamer Carbonate) 800 Mg Tablet 800 Mg PO TIDWMEALS 02/09/17 Reported Calcium Acetate 667 Mg Tablet 1,334 Mg PO TIDWMEALS 02/09/17 Reported Pantoprazole Sodium 40 Mg Tablet.dr 1 Tab PO DAILY 02/09/17 Reported [place] 5-325 Tablet (Acetaminophen/Hydrocodone Bitart) 1 Each Tablet 1 Tab PO PRN Q4HRS PRN 02/09/17 Reported Nephro-Marissa Tablet (Folic Acid/Vitamin B Comp W-C) 0.8 Mg Tablet 1 Tab PO DAILY 02/09/17 Reported Lexapro (Escitalopram Oxalate) 20 Mg Tablet 1 Tab PO DAILY 02/09/17 Reported Hydralazine Hcl 25 Mg Tablet 1 Tab PO TID 02/09/17 Reported Coreg (Carvedilol) 6.25 Mg Tablet 1 Tab PO BID 02/09/17 Reported Norvasc (Amlodipine Besylate) 10 Mg Tablet 1 Tab PO DAILY 04/15/15 Reported Impression . NOTE DICTATED D/C HOME FOLLOW UP IN OFFICE HOME THERON WOMACK MD Feb 10, 2017 16:10
--- NOTE | 2017-02-10 20:08 | DS ---
DATE OF DISCHARGE: 02/10/2017 ADMISSION DIAGNOSIS: Chronic obstructive pulmonary disease with respiratory failure. DISCHARGE DIAGNOSIS: Resolving chronic obstructive pulmonary disease. HOSPITAL COURSE: The patient is a pleasant 56-year-old female who presented with COPD exacerbation with some hypoxia. She was in mild respiratory failure. She was admitted. We gave her steroids, breathing treatments, and oxygen. Now, she is at her baseline. She wants to go home. I examined her this morning. Her heart sounds were normal. Her lungs were diminished but clear. Abdomen was soft. Extremities have no edema. We plan to discharge. DISPOSITION: Home. ACTIVITY: As tolerated. DIET: Low sodium. MEDICATIONS: Please see the MRAD. TOTAL TIME ON DISCHARGE: 31 minutes. LIZ ROGERS DO DR: ARNALDO/aurelio JOB#: [id number] / [id number]
--- NOTE | 2017-02-11 04:22 | CONS ---
DATE OF CONSULTATION: PRIMARY PHYSICIAN: Dr. Rdz. REASON FOR CONSULTATION: ESRD, shortness of breath, possible CHF. HISTORY OF PRESENT ILLNESS: The patient is a 56-year-old female who I follow for her ESRD needs. She usually is seen at hospitalist other than [facility]. She was severely hypoxemic sats of 71%. She was felt to have a COPD exacerbation; however, chest x-ray showed significant CHF. She was dialyzed and brought down to a dry weight where she is feeling much better. An echocardiogram was done yesterday, which shows EF of 55-60%, but moderate mitral regurg with PA pressures of 40 and moderate pulmonary hypertension. She also was noted to have severe hyperkalemia at 6.7. She is feeling much better today and actually wants to go home. For rest of the details, see electronic renal consult note. NNAMDI REARDON MD DR: TEMO/aurelio JOB#: [id number] / [id number]
--- NOTE | 2017-02-11 07:14 | CONS ---
DATE OF CONSULTATION: 02/10/2017 ATTENDING PHYSICIAN: Cristian Rdz MD CONSULTING PHYSICAN: Theron Quinonez MD REASON FOR CONSULTATION: The patient seen in pulmonary consultation at the request of Dr. Rdz for abnormal x-ray. HISTORY OF PRESENT ILLNESS: The patient is a 56-year-old that was at dialysis. She started experiencing increasing shortness of breath, decreased saturation. She was transferred to the Emergency Room and admitted. I was asked to see her in consultation. Part of her workup included a chest x-ray, which reveals significant bilateral pulmonary infiltrates compatible with vascular congestion and some chronic changes. The patient reports no fever, chills, cough productive of discolored sputum. She was prescribed oxygen. She does not wear it on a regular basis. She has a cough productive of sputum at times mixed in with some blood. PAST MEDICAL HISTORY: COPD, chronic respiratory failure, hypertension, and renal failure. PAST SURGICAL HISTORY: No recent major surgeries. FAMILY HISTORY: Coronary artery disease. SOCIAL HISTORY: She quit tobacco, but she has a significant work history. REVIEW OF SYSTEMS: As indicated above, otherwise, a 10-point system was reviewed and negative. CURRENT MEDICATION: List was reviewed. Please see the MRAD. PHYSICAL EXAMINATION: VITAL SIGNS: Stable. O2 saturation currently was on 4 liters was 90%. HEENT: Eyes, the sclerae were nonicteric. NECK: Jugular venous distention was not elevated. No lymphadenopathy. CHEST: Full expansion. LUNGS: Crackles in the bases. No wheezes. CARDIOVASCULAR: Regular rate and rhythm with S1, S2, no S3. ABDOMEN: Soft, nontender, nondistended. EXTREMITIES: No clubbing, cyanosis or edema. NEUROLOGIC: The patient was awake, alert, following commands. A detailed neuro exam was not performed. LABORATORY DATA: Reviewed. White count was normal. Hemoglobin and hematocrit were noted. IMAGING STUDIES: Chest x-ray as indicated above. IMPRESSION: 1. Gstlr-ez-vcaqids respiratory failure. 2. Acute pulmonary edema. 3. Abnormal x-ray compatible with pulmonary edema and fibrosis. 4. Chronic obstructive pulmonary disease. 5. End-stage renal disease. 6. Tobacco dependence in remission. PLAN: 1. The patient will be discharged home to follow up in the Outpatient Department. 2. Outpatient CT chest. 3. Continue oxygen supplementation, stressed the importance of proper oxygen use. 4. Nebulized treatments. 5. Outpatient PFTs. I do appreciate the privilege in sharing in the patient's care. THERON QUINONEZ MD DR: DARREN/aurelio JOB#: [id number] / [id number]
== END 2017-02-10 15:30 | disposition home or self-care (01) | DRG 291 ==
LOC: ER 14:32 → 5 SOUTH 15:40
PROVIDERS: ADMIT Internal Medicine; ATTEND Internal Medicine
DX: I50.43 Acute on chronic combined systolic (congestive) and diastolic (congestive) heart failure (principal); J96.21 Acute and chronic respiratory failure with hypoxia; N18.6 End stage renal disease; J44.1 Chronic obstructive pulmonary disease with (acute) exacerbation; I12.0 Hypertensive chronic kidney disease with stage 5 chronic kidney disease or end stage renal disease; J81.0 Acute pulmonary edema; E87.5 Hyperkalemia; F41.9 Anxiety disorder, unspecified; F17.211 Nicotine dependence, cigarettes, in remission; M19.90 Unspecified osteoarthritis, unspecified site; I27.2 Other secondary pulmonary hypertension; I34.0 Nonrheumatic mitral (valve) insufficiency; Z82.49 Family history of ischemic heart disease and other diseases of the circulatory system; Z99.2 Dependence on renal dialysis; Z99.81 Dependence on supplemental oxygen; Z88.1 Allergy status to other antibiotic agents; Z88.8 Allergy status to other drugs, medicaments and biological substances; Z85.89 Personal history of malignant neoplasm of other organs and systems; Z79.899 Other long term (current) drug therapy
CPT/HCPCS: 36415; 71020; 80048; 83880; 85027; 93005; 93306; 94250; 94640; 94760; 96365; J1956; J7512; J7620; 99285-25

== ENCOUNTER → 2017-03-17 | Outpatient (CLI) | payer MEDICARE, OTHER ==
[~2017-03-17] MED LIST changes: +ALBU2.5V5 NEB; +BECL8.7A7 IH; +CARV6.25 PO; +FOLI0.8T3 PO; +HYDR-2868 PO; +HYDR-971 PO; +LEXAPRO20 MG PO; +PANT40TA5 PO; +REGADENOSON 0.4 MG/5 ML DISP.SYRIN. IV ONE; +SODI650T PO; +VENTOLIN HFA18 GM INH
--- NOTE | 2017-03-17 12:55 | RAD ---
APPROVED REPORT Test Type: Pharmacological Stress Nurse/Tech: Candy Aesncio R.N. Test Indications: chronic diastolic heart failure Cardiac History: Family history, Hypertension, renal failure Medications: Zocor Medical History: See Electronic Medical Record Resting ECG: NSR Resting Heart Rate: 78 bpm Resting Blood Pressure: 155/82mmHg Pretest Chest Pain: No chest pain Nurse/Tech Notes S1S2, lungs sound clear Consent: The procedure was explained to the patient in lay terms. Informed consent was witnessed. Axel eout was entered into [employer]. History and Stress Test performed by Candy Asencio R.N. Pharm. Details Pharmacologic stress testing was performed using 0.4mg per 5ml of regadenoson given intravenously ove r 7-10 seconds. Stress Symptoms No chest pain or symptoms. POST EXERCISE Reason for Termination: Infusion complete Max HR: 97 bpm Max Blood Pressure: 154/92mmHg Blood Pressure response to exercise: Normal blood pressure response during stress. Chest Pain: No. Arrhythmia: No. ST Change: No. INTERPRETATION Stress EKG Conclusion: Baseline EKG showed sinus rhythm. No ischemic changes at peak stress. No arr hythmias. Imaging Protocol IMAGE PROTOCOL: Rest Tc-99m/stress Tc-99m 1 day Rest: Stress: Viability: Radiopharm.Tc99m [id number] Sestamibi [id number] 33mCi Duration 15min. 10min. Img Date 03/17/2017 03/17/2017 Inj-Img [id number]. 60min. Rest Admin Site:IV - Right HandAdministrator:Kieran Figueredo RT (R)(N) Stress Admin Site: IV - Right HandAdministrator: Jennifer Dutton RT (R)(N) STRESS DATA End Diast. Vol.154.0mlAv. Heart Rate87.0bpm End Syst. Vol.50.0mlCO Index BSA0.0L/min Myocardial Uvsq990.0gEject. Ofeopyli82.0% Stress Rates Pk. Fill Rate3.30EDV/secLVtime Pk. Fill 188.96msec Pk. Empty Rate3.13ESV/secLVtime Pk. Apfuw235.08msec 1/3 Pk. Fill0.88EDV/sec Stress Scores Regional WT2.00Summed WT15.00 Regional WM0.00Summed WM2.00 Study quality was good. Left Ventricular size was Normal at Rest and Stress. Lung uptake was Normal. Left Ventricular ejection fraction is 68%. The rest and stress images show normal perfusion, normal contraction and thickening. LV Perf. Quant 17 Seg. SSS0.00 17 Seg. SRS1.00 17 Seg. SDS0.00 Stress Defect Extent (% LAD)4.40Rest Defect Extent (% LAD)3.10Rev. Defect Extent (% LAD)0.60 Stress Defect Extent (% LCX) 0.00Rest Defect Extent (% LCX)0.00Rev. Defect Extent (% LCX)0.00 Stress Defect Extent (% RCA)0.00Rest Defect Extent (% RCA)6.70Rev. Defect Extent (% RCA)0.00 Stress Defect Extent (% PATTI)2.40Rest Defect Extent (% PATTI)6.10Rev. Defect Extent (% PATTI)0.20 Conclusion 1. Regadenoson cardioisotope stress test did not show any evidence of ischemia or infarct. 2. Normal left ventricular systolic function with ejection fraction calculated at 68%. 3. Low risk for cardiac events.
== END | disposition home or self-care (01) ==
LOC: NM 15:41
PROVIDERS: ATTEND Internal Medicine Cardiovascular Disease
DX: I50.32 Chronic diastolic (congestive) heart failure (principal); I10 Essential (primary) hypertension; I49.5 Sick sinus syndrome; Z79.01 Long term (current) use of anticoagulants; Z87.891 Personal history of nicotine dependence
CPT/HCPCS: 78452; 93017; 96374; 96375; 96376; A9500; J2785

== ENCOUNTER → 2017-08-30 | Day surgery (SDC) | payer MEDICARE, OTHER ==
[~2017-08-30] MED LIST changes: -ALBU2.5V5 NEB; -AMLO10TA2 PO; -AMLO10TA4 PO; -BECL8.7A7 IH; +BENZOCAINE ONE 20% MUCOSAL SPRAY.; -CA C1TAB28 PO; -CALC667T PO; -CARV12.5 PO; -CARV6.25 PO; -CINA30TA2 PO; -CINA60TA PO; -FOLI0.8T3 PO; -FURO-68 PO; -FURO80TA72 PO; -HYDR-2868 PO; -HYDR-971 PO; -LEXAPRO20 MG PO; +LIDOCAINE 1% PF 2 ML VIAL. ID; +LIDOCAINE 2% TOPICAL JELLY 5GM TUBE. TP; +LIDOCAINE 2% VISCOUS 15 ML SOLUTION.; +LIDOCAINE 2% VISCOUS 15 ML SOLUTION. SWSW; -METO10TA5 PO; -METO50TA2 PO; +MORPHINE SULFATE 2 MG/ML DISP.SYRIN. IV; -PANT40TA5 PO; +PROCHLORPERAZINE 10 MG/2 ML VIAL. IV; +PROPOFOL 40 ML IV; -REGADENOSON 0.4 MG/5 ML DISP.SYRIN. IV ONE; -SEVE800T9 PO; -SODI650T PO; -VENTOLIN HFA18 GM INH; +fentaNYL PF VIAL 100 MCG/2 ML VIAL IV
[2017-08-30] MEDS: IV RINGERS,LACTATED 1000ML 1,000 ML IV (07:00)
[2017-08-30] MEDS: IV NORMAL SALINE 1000ML BAG 1,000 ML IV (14:06)
[2017-08-30] MEDS: LIDOCAINE 2% TOPICAL JELLY 5GM TUBE. TP (14:51)
[2017-08-30] MEDS: BENZOCAINE ONE 20% MUCOSAL SPRAY. MM (14:52)
== END | disposition home or self-care (01) ==
LOC: SURG 12:58
DX: I08.3 Combined rheumatic disorders of mitral, aortic and tricuspid valves (principal); I10 Essential (primary) hypertension; J44.9 Chronic obstructive pulmonary disease, unspecified; K21.9 Gastro-esophageal reflux disease without esophagitis; Z98.890 Other specified postprocedural states; Z87.891 Personal history of nicotine dependence; Z88.8 Allergy status to other drugs, medicaments and biological substances; Z88.1 Allergy status to other antibiotic agents; Z91.040 Latex allergy status
CPT/HCPCS: 93312; 93325; 99152; 99153; J2704